=== PATIENT | female | born 1975 | race American Indian/Alaskan Native ===

== ENCOUNTER 2017-04-03 02:15 | Emergency (ER) | payer MEDICAID ==
[2017-04-03] MEDS ORDERED: TORADOL IM ONE (04:08)
[2017-04-03] MEDS ORDERED: FLEXERIL PO ONE (04:08)
--- NOTE | 2017-04-03 04:16 | Emergency Department Report ---
HPI - General Chief Complaint: Extremity Injury, Lower Time Seen by Provider: 04/03/17 04:05 - HPI HPI: Patient is a 41-year-old female presents complaining of bilateral knee pain for the past week. Patient states he is worse than left. Patient states she's had surgery on her right knee September 2016 and has had worsening pain since then. Patient states pain is located to posterior aspect of the knee with no radiation elsewhere. Patient states she was seen this date ER on 03/21/2017 and was diagnosed with a left knee effusion. Patient states she does not recall the orthopedic doctor that did her surgery last year. She describes the throbbing nature worsened with walking certain movements. She denies fevers/chills/nausea/vomiting/abdominal pain/calf pain ED Past Medical Hx - Past Medical History Hx Arthritis: Yes Additional medical history: chronic patella? - Surgical History Past Surgical History?: Yes Additional Surgical History: tubal ligation. R knee arthroscopy (2014) - Social History Smoking Status: Never Smoker Substance Use Type: None - Medications Home Medications: Home Medications Medication Instructions Recorded Confirmed Last Taken Type Cyclobenzaprine [Flexeril 10 MG 10 mg PO QHS #20 tablet 04/03/17 Unknown Rx TAB] Diclofenac Sodium 75 mg PO BID #30 tablet. 04/03/17 Unknown Rx ED Review of Systems ROS: Stated complaint: PAIN BOTH KNEES Other details as noted in HPI Constitutional: denies: chills, fever Eyes: denies: eye pain, eye discharge, vision change ENT: denies: ear pain, throat pain Respiratory: denies: cough, shortness of breath, wheezing Cardiovascular: denies: chest pain, palpitations Endocrine: no symptoms reported Gastrointestinal: denies: abdominal pain, nausea, diarrhea Genitourinary: denies: urgency, dysuria, discharge Musculoskeletal: denies: back pain, joint swelling, arthralgia Skin: denies: rash, lesions Neurological: denies: headache, weakness, paresthesias Psychiatric: denies: anxiety, depression Hematological/Lymphatic: denies: easy bleeding, easy bruising Physical Exam - Physical Exam Vital Signs: Vital Signs 04/03/17 02:22 Temperature 98 F Pulse Rate 72 Respiratory 16 Rate Blood Pressure 136/81 O2 Sat by Pulse 95 Oximetry Physical Exam: GENERAL: Alert and oriented x3, no apparent distress, Normal Gait, atraumatic. HEAD: Head is normocephalic and a-traumatic. LUNGS: Symetrical with respiration, No wheezing, no rales or crackles, CTAB. HEART: S1, S2 present, regular rate and rhythm without murmur, no rubs, no gallops. EXTREMITIES/MUSCULOSKELETAL: No cyanosis, clubbing, rash, lesions or edema. Full ROM of knees bilaterally. UE/LE Pulses 2+ bilaterally. LE and UE 5+ strength bilaterally, knee joints are intact. Heavyset female. Knee joints are nonerythematous, non-edema. Warm and dry. Homans sign negative bilaterally. No calf tenderness bilaterally NEUROLOGIC: The patient is cooperative with no focal neurologic deficits. Cranial nerves II through XII are grossly intact. Normal speech. SKIN: Warm and dry, No lesions, No ulceration or induration present. ED Course Vital Signs 04/03/17 02:22 Temperature 98 F Pulse Rate 72 Respiratory 16 Rate Blood Pressure 136/81 O2 Sat by Pulse 95 Oximetry ED Medical Decision Making - Medical Decision Making 41-year-old female presents with bilateral knee pain. ED course: Patient received Toradol and Flexeril ED. Discussed with patient need to follow-up with orthopedic doctor for continued management of chronic pain. Discussed primary care physician referral as well. Vital signs are normal patient is in no acute distress. Patient is alert and oriented 3 she understands all instructions given and states she will follow up Critical care attestation.: If time is entered above; I have spent that time in minutes in the direct care of this critically ill patient, excluding procedure time. ED Disposition Clinical Impression: Bilateral anterior knee pain Chronic pain Qualifiers: Chronic pain type: other chronic pain Qualified Code(s): G89.29 - Other chronic pain Disposition: DISCHARGED TO HOME OR SELFCARE Is pt being admited?: No Does the pt Need Aspirin: No Condition: Stable Instructions: Arthralgia (ED), Heat Pack Application (ED), Knee Exercises (GEN) , Knee Effusion (ED) Prescriptions: Cyclobenzaprine [Flexeril 10 MG TAB] 10 mg PO QHS #20 tablet Diclofenac Sodium 75 mg PO BID #30 tablet. Referrals: SAIGE LEMUS MD [Primary Care Provider] - 3-5 Days ANGELINE FARRAR MD [Staff Physician] - 3-[address] [facility] [Outside] - 3-5 Days [facility] [Outside] - 3-5 Days ADI GUZMAN MD [Staff Physician] - 3-5 Days MARSHA VALENZUELA MD [Staff Physician] - 3-5 Days Forms: Work/School Release Form(ED) Time of Disposition: 04:18
[2017-04-03 04:52] VITALS: BP 130/85
== END 2017-04-03 04:54 | disposition home or self-care (01) ==
LOC: ED 02:15
DX: M25.561 Pain in right knee (principal); M25.562 Pain in left knee; G89.29 Other chronic pain
CPT/HCPCS: 96372; 99282; J1885

== ENCOUNTER 2018-02-19 11:14 | Emergency (ER) | payer MEDICAID ==
[2018-02-19 12:20] VITALS: BP 139/72
[2018-02-19] MEDS ORDERED: FLEXERIL PO ONE (12:40)
[2018-02-19] MEDS ORDERED: DELTASONE PO ONE (12:40)
--- NOTE | 2018-02-19 12:55 | Emergency Department Report ---
HPI - General Chief Complaint: Extremity Injury, Lower Time Seen by Provider: 02/19/18 12:33 - HPI HPI: This is a 42-year-old female who presents to ED complaining of left knee pain 2 weeks. Patient states she had the knee surgery on that left knee in December 29 2017. Patient states pain has been worsened with prolonged standing. 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 Patient states last couple of days pain as pain worsened with throbbing and aching in nature. She denies any trauma or fall injuries to the knee. ED Past Medical Hx - Past Medical History Hx Arthritis: Yes Additional medical history: chronic patella? - Surgical History Additional Surgical History: tubal ligation. R knee arthroscopy (2014) - Social History Smoking Status: Never Smoker Substance Use Type: None - Medications Home Medications: Home Medications Medication Instructions Recorded Confirmed Last Taken Type Cyclobenzaprine [Flexeril 10 MG 10 mg PO QHS #20 tablet 02/19/18 Unknown Rx TAB] Diclofenac Sodium 75 mg PO BID #30 tablet. 02/19/18 Unknown Rx predniSONE [Deltasone] 20 mg PO DAILY #6 tablet 02/19/18 Unknown Rx ED Review of Systems ROS: Stated complaint: LEG SPASMS Other details as noted in HPI Constitutional: denies: chills, fever Eyes: denies: eye pain, eye discharge, vision change ENT: denies: ear pain, throat pain Respiratory: denies: cough, shortness of breath, wheezing Cardiovascular: denies: chest pain, palpitations Endocrine: no symptoms reported Gastrointestinal: denies: abdominal pain, nausea, diarrhea Genitourinary: denies: urgency, dysuria, discharge Musculoskeletal: arthralgia. denies: back pain, joint swelling Skin: denies: rash, lesions Neurological: denies: headache, weakness, paresthesias Psychiatric: denies: anxiety, depression Hematological/Lymphatic: denies: easy bleeding, easy bruising Physical Exam - Physical Exam Vital Signs: Vital Signs 02/19/18 12:17 Temperature 98.1 F Pulse Rate 58 L Respiratory 16 Rate Blood Pressure 139/72 O2 Sat by Pulse 97 Oximetry Physical Exam: GENERAL: Alert and oriented x3, no apparent distress, Normal Gait, atraumatic. HEAD: Head is normocephalic and a-traumatic. NECK: Supple. Non edematous, No lymphadenopathy or thyromegaly. No C-spine tenderness, full range of motion LUNGS: Symetrical with respiration, No wheezing, no rales or crackles, CTAB. HEART: S1, S2 present, regular rate and rhythm without murmur, no rubs, no gallops. Non tender to palpation BACK: Full range of motion, no spinal tenderness, NonTender to palpation. EXTREMITIES/MUSCULOSKELETAL: No cyanosis, clubbing, rash, lesions or edema of all lower extremities. Full ROM bilaterally. LE Pulses 2+ bilaterally. LE 5+ strength bilaterally, no calf tenderness, Homans sign negative, no deformity seen of the knee, surgery healed scars seen anteriorly. NEUROLOGIC: The patient is cooperative with no focal neurologic deficits. SKIN: Warm and dry, No lesions, No ulceration or induration present. ED Course Vital Signs 02/19/18 12:17 Temperature 98.1 F Pulse Rate 58 L Respiratory 16 Rate Blood Pressure 139/72 O2 Sat by Pulse 97 Oximetry ED Medical Decision Making - Medical Decision Making 37-year-old female presents to ED with acute on chronic knee pain ED course: Patient received prednisone and Flexeril in ED. Discussed the patient to follow up with her orthopedic doctor. I discussed the patient and suggested for her to wear knee brace when at work with prolonged standing or walking Vital signs are normal patient is in no acute distress Discussed with patient follow-up with primary care physician. Discussed the patient and take medications as prescribed. Patient has no neurological deficit. Patient is alert and oriented 3 and understands all instructions given. Discussed drowsiness effect of Flexeril makes her drowsy and not to operate machinery while taking flexeril Critical care attestation.: If time is entered above; I have spent that time in minutes in the direct care of this critically ill patient, excluding procedure time. ED Disposition Clinical Impression: Left knee pain Qualifiers: Chronicity: acute Qualified Code(s): M25.562 - Pain in left knee Disposition: -01 TO HOME OR SELFCARE Is pt being admited?: No Does the pt Need Aspirin: No Condition: Stable Instructions: Arthralgia (ED), Knee Immobilizer (ED), Knee Exercises (GEN), Knee Pain (ED) Additional Instructions: Make sure to follow up with the primary care physician as discussed. Take all your medications as you've been prescribed. If you have any worsening symptoms or develop new symptoms please return to ED immediately. Prescriptions: Cyclobenzaprine [Flexeril 10 MG TAB] 10 mg PO QHS #20 tablet Diclofenac Sodium 75 mg PO BID #30 tablet. predniSONE [Deltasone] 20 mg PO DAILY #6 tablet Referrals: APRIL LING MD [Primary Care Provider] - 3-5 Days Forms: Work/School Release Form(ED) Time of Disposition: 13:13
== END 2018-02-19 13:27 | disposition home or self-care (01) ==
LOC: ED 11:14
DX: M25.562 Pain in left knee (principal); M19.90 Unspecified osteoarthritis, unspecified site; Z98.51 Tubal ligation status
CPT/HCPCS: 99282; J7512

== ENCOUNTER 2018-05-16 10:15 | Emergency (ER) | payer OTHER, MEDICAID ==
--- NOTE | 2018-05-16 11:39 | Emergency Department Report ---
ED ENT HPI - General Chief complaint: Earache Stated complaint: (L) EAR BLOOD DRAINAGE Time Seen by Provider: 05/16/18 11:19 Source: patient Mode of arrival: Ambulatory Limitations: No Limitations - History of Present Illness Initial comments: This is a 42-year-old female brought by mother nontoxic, well nourished in appearance, no acute signs of distress presents to the ED with c/o of acute on chronic left earache. Patient stated she wake up in the morning with clear/red ear drainage. Patient denies any trauma to the area. Patient stated that she had left 2years ago. Patient denies any mastoid tenderness. Patient stated has tragus pain. Patient stated has slight decreased hearing but no loss. Patient denies any fever, chills, nausea, vomiting, chest pain, short of breath, headache or stiff neck. Patient stated allergies to Percocets. MD complaint: ear pain -: days(s) (1) Location: L ear Severity: mild Severity scale (0 -10): 3 Quality: aching Consistency: constant Improves with: none Worsens with: none Associated Symptoms: denies: fever, cough, gum swelling, toothache, pain with swallowing, sore throat, tinnitus, hearing loss, discharge from ear, rhinorrhea - Related Data Previous Rx's Medication Instructions Recorded Last Taken Type Cyclobenzaprine [Flexeril 10 MG 10 mg PO QHS #20 tablet 02/19/18 Unknown Rx TAB] Diclofenac Sodium 75 mg PO BID #30 tablet. 02/19/18 Unknown Rx predniSONE [Deltasone] 20 mg PO DAILY #6 tablet 02/19/18 Unknown Rx Amoxicillin [Amoxicillin TAB] 875 mg PO BID #20 tablet 05/16/18 Unknown Rx Ciprofloxacin 0.2%(Nf) 2 drops TID #1 droperette 05/16/18 Unknown Rx [Ciprofloxacin OTIC] Allergies Allergy/AdvReac Type Severity Reaction Status Date / Time acetaminophen [From Percocet] AdvReac Nausea Verified 11/29/16 16:43 oxycodone HCl [From Percocet] AdvReac Nausea Verified 11/29/16 16:43 ED Dental HPI - General Chief complaint: Earache Stated complaint: (L) EAR BLOOD DRAINAGE Time Seen by Provider: 05/16/18 11:19 Source: patient Mode of arrival: Ambulatory Limitations: No Limitations - Related Data Previous Rx's Medication Instructions Recorded Last Taken Type Cyclobenzaprine [Flexeril 10 MG 10 mg PO QHS #20 tablet 02/19/18 Unknown Rx TAB] Diclofenac Sodium 75 mg PO BID #30 tablet. 02/19/18 Unknown Rx predniSONE [Deltasone] 20 mg PO DAILY #6 tablet 02/19/18 Unknown Rx Amoxicillin [Amoxicillin TAB] 875 mg PO BID #20 tablet 05/16/18 Unknown Rx Ciprofloxacin 0.2%(Nf) 2 drops TID #1 droperette 05/16/18 Unknown Rx [Ciprofloxacin OTIC] Allergies Allergy/AdvReac Type Severity Reaction Status Date / Time acetaminophen [From Percocet] AdvReac Nausea Verified 11/29/16 16:43 oxycodone HCl [From Percocet] AdvReac Nausea Verified 11/29/16 16:43 ED Review of Systems ROS: Stated complaint: (L) EAR BLOOD DRAINAGE Other details as noted in HPI Constitutional: denies: chills, fever Eyes: denies: eye pain, eye discharge, vision change ENT: ear pain. denies: throat pain Respiratory: denies: cough, shortness of breath, wheezing Cardiovascular: denies: chest pain, palpitations Endocrine: no symptoms reported Gastrointestinal: denies: abdominal pain, nausea, diarrhea Genitourinary: denies: urgency, dysuria, discharge Musculoskeletal: denies: back pain, joint swelling, arthralgia Skin: denies: rash, lesions Neurological: denies: headache, weakness, paresthesias Psychiatric: denies: anxiety, depression Hematological/Lymphatic: denies: easy bleeding, easy bruising ED Past Medical Hx - Past Medical History Hx Arthritis: Yes Additional medical history: chronic patella? - Surgical History Additional Surgical History: tubal ligation. R knee arthroscopy (2014) - Social History Smoking Status: Never Smoker Substance Use Type: None - Medications Home Medications: Home Medications Medication Instructions Recorded Confirmed Last Taken Type Cyclobenzaprine [Flexeril 10 MG 10 mg PO QHS #20 tablet 02/19/18 Unknown Rx TAB] Diclofenac Sodium 75 mg PO BID #30 tablet. 02/19/18 Unknown Rx predniSONE [Deltasone] 20 mg PO DAILY #6 tablet 02/19/18 Unknown Rx Amoxicillin [Amoxicillin TAB] 875 mg PO BID #20 tablet 05/16/18 Unknown Rx Ciprofloxacin 0.2%(Nf) 2 drops TID #1 droperette 05/16/18 Unknown Rx [Ciprofloxacin OTIC] ED Physical Exam - General Limitations: No Limitations General appearance: alert, in no apparent distress - Head Head exam: Present: atraumatic, normocephalic - Eye Eye exam: Present: normal appearance Pupils: Present: normal accommodation - ENT ENT exam: Present: normal orophraynx, mucous membranes moist - Expanded ENT Exam Expanded TM/Canal exam: Erythema: Left TM, Bulging: Left TM Mouth exam: Present: normal external inspection, tongue normal. Absent: drooling, trismus, muffled voice, tongue elevation, laceration Teeth exam: Present: normal inspection Throat exam: Positive: normal inspection. Negative: tonsillar erythema, tonsillomegaly, tonsillar exudate, R peritonsillar mass, L peritonsillar mass - Neck Neck exam: Present: normal inspection, full ROM. Absent: tenderness, meningismus, lymphadenopathy - Respiratory Respiratory exam: Present: normal lung sounds bilaterally. Absent: respiratory distress - Cardiovascular Cardiovascular Exam: Present: regular rate, normal rhythm. Absent: systolic murmur, diastolic murmur, rubs, gallop - GI/Abdominal GI/Abdominal exam: Present: soft, normal bowel sounds - Extremities Exam Extremities exam: Present: normal inspection - Back Exam Back exam: Present: normal inspection - Neurological Exam Neurological exam: Present: alert, oriented X3 - Psychiatric Psychiatric exam: Present: normal affect, normal mood - Skin Skin exam: Present: warm, dry, intact, normal color. Absent: rash - Other Other exam information: Positive tragus tenderness and clear drainage of left ear. Ear tube left looks like it may be slightly displaced ED Course Vital Signs 05/16/18 10:23 Temperature 98.5 F Pulse Rate 65 Respiratory 16 Rate Blood Pressure 163/55 O2 Sat by Pulse 99 Oximetry - Reevaluation(s) Reevaluation #1: 05/16/18 11:38 Patient is speaking in full sentences with no signs of distress noted. ED Medical Decision Making - Medical Decision Making 32-year-old female that presents with otitis media and otitis externa. Patient stated was examined by me. Upon examination the left tube looks like it may be slightly displaced. There is no mastoid tenderness or redness. I will discharge patient with amoxicillin and ciprofloxacin ear drops. I refer patient to Follow-up with a ENT in 3-5 days or if symptoms worsen and continue return to emergency room as soon as possible. At time of discharge, the patient does not seem toxic or ill in appearance. No acute signs of distress noted. Patient agrees to discharge treatment plan of care. No further questions noted by the patient. Critical care attestation.: If time is entered above; I have spent that time in minutes in the direct care of this critically ill patient, excluding procedure time. ED Disposition Clinical Impression: Otitis media Qualifiers: Otitis media type: unspecified Laterality: left Qualified Code(s): H66.92 - Otitis media, unspecified, left ear Otitis externa Qualifiers: Otitis externa type: other infective Chronicity: chronic Laterality: left Qualified Code(s): H60.392 - Other infective otitis externa, left ear Disposition: - TO HOME OR SELFCARE Is pt being admited?: No Does the pt Need Aspirin: No Condition: Stable Additional Instructions: Follow-up with a ENT in 3-5 days or if symptoms worsen and continue return to emergency room as soon as possible. Prescriptions: Amoxicillin [Amoxicillin TAB] 875 mg PO BID #20 tablet Ciprofloxacin 0.2%(Nf) [Ciprofloxacin OTIC] 2 drops TID #1 droperette Referrals: ROSALEE CARVALHO [Other] - 3-5 Days PRIMARY CAREMD [Referring] - 3-5 Days MELVIN PAGE MD [Staff Physician] - 3-5 Days [facility] [Outside] - 3-5 Days Forms: Work/School Release Form(ED)
[2018-05-16 12:00] VITALS: BP 131/62
== END 2018-05-16 12:00 | disposition home or self-care (01) ==
LOC: ED 10:15
DX: H66.92 Otitis media, unspecified, left ear (principal); H60.392 Other infective otitis externa, left ear; M19.90 Unspecified osteoarthritis, unspecified site; Z88.6 Allergy status to analgesic agent; Z88.4 Allergy status to anesthetic agent; Z98.51 Tubal ligation status
CPT/HCPCS: 99282

== ENCOUNTER 2018-07-10 17:05 | Emergency (ER) | payer OTHER, MEDICAID ==
[2018-07-10 17:48] VITALS: BP 133/52
[2018-07-10] MEDS ORDERED: FLEXERIL PO ONE (21:04)
[2018-07-10] MEDS ORDERED: MOTRIN PO ONE (21:04)
--- NOTE | 2018-07-10 23:09 | XRay Report ---
FINAL REPORT EXAM: XR SPINE THORACIC 2V HISTORY: thoracic back pain. TECHNIQUE: Frontal and lateral views thoracic spine Comparison: X-ray chest dated March 06, 2016 FINDINGS: There is mild prominence of the thoracic kyphosis. Bony alignment is otherwise normal. The vertebral height and disc spaces are maintained. The paraspinous soft tissues are unremarkable. IMPRESSION: 1. Mild prominence of the thoracic kyphosis. 2. Otherwise unremarkable study. If further imaging is required, MRI may be helpful.
--- NOTE | 2018-07-11 00:13 | Emergency Department Report ---
ED Back Pain/Injury HPI - General Chief Complaint: Back Pain/Injury Stated Complaint: BACK PAIN SEVERE Time Seen by Provider: 07/10/18 22:20 Source: patient Limitations: No Limitations - History of Present Illness Initial Comments: 42-year-old -Chinese female comes in complaining of back pain that is severe reports a 10 out of 10. Patient reports that she is having back pain for greater than a month and is intermittent. Patient reports that is very tender to touch on the right side. Patient reports that it hurts to breathe at times it hurts to lift arm above head at times. Patient denies any cough no shortness of breath at this moment. Patient reports that she has been seen by [facility] and had nerve tests and was diagnosed with sciatica. Patient complains of the back is more for thoracic area. She denies any recent trauma to her back. MD Complaint: back pain -: month(s) Similar Symptoms Previously: Yes Radiation: none Severity: severe Severity scale (0 -10): 10 Quality: burning, sharp Consistency: intermittent Improves With: none Worsens With: movement, deep breaths/cough Associated Symptoms: denies other symptoms Treatments Prior to Arrival: NSAIDS, acetaminophen - Related Data Previous Rx's Medication Instructions Recorded Last Taken Type Cyclobenzaprine [Flexeril 10 MG 10 mg PO QHS #20 tablet 02/19/18 Unknown Rx TAB] Diclofenac Sodium 75 mg PO BID #30 tablet. 02/19/18 Unknown Rx predniSONE [Deltasone] 20 mg PO DAILY #6 tablet 02/19/18 Unknown Rx Amoxicillin [Amoxicillin TAB] 875 mg PO BID #20 tablet 05/16/18 Unknown Rx Ciprofloxacin 0.2%(Nf) 2 drops TID #1 droperette 05/16/18 Unknown Rx [Ciprofloxacin OTIC] Naproxen [Naprosyn] 500 mg PO BID #20 tablet 07/11/18 Unknown Rx Allergies Allergy/AdvReac Type Severity Reaction Status Date / Time acetaminophen [From Percocet] AdvReac Nausea Verified 11/29/16 16:43 oxycodone HCl [From Percocet] AdvReac Nausea Verified 11/29/16 16:43 ED Review of Systems ROS: Stated complaint: BACK PAIN SEVERE Other details as noted in HPI Comment: All other systems reviewed and negative Musculoskeletal: back pain ED Past Medical Hx - Past Medical History Hx Arthritis: Yes Additional medical history: chronic patella? - Surgical History Additional Surgical History: tubal ligation. R knee arthroscopy (2015) - Social History Smoking Status: Never Smoker Substance Use Type: None - Medications Home Medications: Home Medications Medication Instructions Recorded Confirmed Last Taken Type Cyclobenzaprine [Flexeril 10 MG 10 mg PO QHS #20 tablet 02/19/18 Unknown Rx TAB] Diclofenac Sodium 75 mg PO BID #30 tablet. 02/19/18 Unknown Rx predniSONE [Deltasone] 20 mg PO DAILY #6 tablet 02/19/18 Unknown Rx Amoxicillin [Amoxicillin TAB] 875 mg PO BID #20 tablet 05/16/18 Unknown Rx Ciprofloxacin 0.2%(Nf) 2 drops TID #1 droperette 05/16/18 Unknown Rx [Ciprofloxacin OTIC] Naproxen [Naprosyn] 500 mg PO BID #20 tablet 07/11/18 Unknown Rx ED Physical Exam - General Limitations: No Limitations General appearance: alert, in no apparent distress - Head Head exam: Present: atraumatic, normocephalic - Eye Eye exam: Present: EOMI - ENT ENT exam: Present: mucous membranes moist - Respiratory Respiratory exam: Present: normal lung sounds bilaterally. Absent: respiratory distress - Cardiovascular Cardiovascular Exam: Present: regular rate, normal rhythm. Absent: systolic murmur, diastolic murmur, rubs, gallop - Extremities Exam Extremities exam: Present: normal inspection, full ROM - Back Exam Back exam: Present: full ROM, tenderness (right thoracic at the scapular angle tenderness). Absent: muscle spasm, rash noted - Expanded Back Exam Expanded Back exam: Negative Straight Leg Raising: Right, Left - Neurological Exam Neurological exam: Present: alert, oriented X3 - Psychiatric Psychiatric exam: Present: normal affect, normal mood - Skin Skin exam: Present: warm, dry, intact, normal color. Absent: rash ED Course Vital Signs 07/10/18 17:44 Temperature 97.5 F L Pulse Rate 63 Respiratory 20 Rate Blood Pressure 133/52 O2 Sat by Pulse 100 Oximetry ED Medical Decision Making - Medical Decision Making Patient was evaluated by this provider in fast track. Ibuprofen 800 mg Flexeril 10 mg given for pain management. X-ray of the thoracic shows that patient has kyphosis Discussed patient results given patient a handout on what kyphosis is in his symptoms. Discussed the patient I will refer her to orthopedics as well as follow-up with the [facility]. Patient's diagnosis with kyphosis and chronic back pain. Critical care attestation.: If time is entered above; I have spent that time in minutes in the direct care of this critically ill patient, excluding procedure time. ED Disposition Disposition: DC-01 TO HOME OR SELFCARE Is pt being admited?: No Does the pt Need Aspirin: No Condition: Stable Instructions: Chronic Back Pain (ED), Back Pain (ED) Additional Instructions: Please take pain medication as needed. Please follow up with the orthopedic or client success specialist. Prescriptions: Naproxen [Naprosyn] 500 mg PO BID #20 tablet Referrals: PRIMARY CARE, [Primary Care Provider] - 3-5 Days [facility] [Provider Group] - 3-5 Days [facility] [Provider Group] - 3-5 Days
== END 2018-07-11 01:20 | disposition home or self-care (01) ==
LOC: ED 17:05
DX: M54.6 Pain in thoracic spine (principal); M19.90 Unspecified osteoarthritis, unspecified site; G89.29 Other chronic pain; Z98.51 Tubal ligation status; Z88.6 Allergy status to analgesic agent; Z88.5 Allergy status to narcotic agent
CPT/HCPCS: 72070; 99283